=== PATIENT | female | born 1985 | race African-American/Black ===

== ENCOUNTER 2023-12-09 11:29 | Emergency (ER) | payer SELFPAY ==
[~2023-12-09] VITALS: Ht 177.8 cm; Wt 80.0 kg
[2023-12-09 11:36] VITALS: O2SAT 99
[2023-12-09 12:13] LABS: BASOPHILS % 0.9 % (0.0-2.0); EOSINOPHILS % 1.7 % (0.0-5.0); HEMATOCRIT. 33.8 % (36.0-48.0); HEMOGLOBIN. 10.8 g/dL (12.0-16.0); LYMPHOCYTES % 27.7 % (20.0-50.0); MEAN CORPUSCULAR HEMOGLOBIN 28.3 pg (28.0-32.0); MEAN CORPUSCULAR VOLUME 88.3 fL (81.0-99.0); MONOCYTES % 8.8 % (2.0-8.0); NEUTROPHILS % 60.9 % (40.0-76.0); PLATELET 318 x1000/uL (130-400); RED BLOOD CELL COUNT 3.83 mill/uL (4.2-5.4); RED CELL DISTRIBUTION WIDTH 13.5 % (11.6-14.6); WHITE BLOOD COUNT 6.6 x1000/uL (4.5-11.0)
[2023-12-09 12:20] LABS: CHLORIDE 104 mEq/L (98-107); POTASSIUM 3.5 mEq/L (3.5-5.1); SODIUM 135 mEq/L (136-145)
[2023-12-09 12:21] LABS: CARBON DIOXIDE 26 mEq/L (21-32)
[2023-12-09 12:22] LABS: CALCIUM 9.6 mg/dL (8.7-10.4)
[2023-12-09 12:26] LABS: CREATININE 0.6 mg/dL (0.6-1.0); GLUCOSE 90 mg/dL (70-105)
[2023-12-09 12:27] LABS: UREA NITROGEN BLOOD 6 mg/dL (9-23)
[2023-12-09 12:36] LABS: HCG SCREEN POSITIVE
[2023-12-09 12:39] LABS: TROPONIN I HIGH SENSITIVITY < 4 ng/L (3.0-34)
[2023-12-09 16:00] VITALS: BP 107/62; PULSE 84; RESP 18; TEMP 37.05852; O2SAT 100
== END 2023-12-09 16:02 | disposition home or self-care (01) ==
LOC: ER 11:29
DX: R07.89 Other chest pain (principal)
CPT/HCPCS: 36415; 71045; 80048; 84484; 84702; 84703; 85025; 93005; 99285

== ENCOUNTER 2023-12-19 10:47 | Emergency (ER) | payer SELFPAY ==
[~2023-12-19] VITALS: Ht 170.2 cm; Wt 75.0 kg
[2023-12-19 10:49] VITALS: BP 120/66; PULSE 91; RESP 18; TEMP 98.3; O2SAT 97
[2023-12-19 13:29] LABS: BASOPHILS % 0.7 % (0.0-2.0); EOSINOPHILS % 1.2 % (0.0-5.0); HEMATOCRIT. 33.6 % (36.0-48.0); HEMOGLOBIN. 11.1 g/dL (12.0-16.0); LYMPHOCYTES % 22.1 % (20.0-50.0); MEAN CORPUSCULAR HGB CONC 33.1 g/dL (31.0-37.0); MEAN CORPUSCULAR VOLUME 87.7 fL (81.0-99.0); MEAN PLATELET VOLUME 7.2 fl (7.4-10.4); MONOCYTES % 13.9 % (2.0-8.0); NEUTROPHILS % 62.1 % (40.0-76.0); PLATELET 313 x1000/uL (130-400); RED BLOOD CELL COUNT 3.83 mill/uL (4.2-5.4); RED CELL DISTRIBUTION WIDTH 13.2 % (11.6-14.6); WHITE BLOOD COUNT 7.5 x1000/uL (4.5-11.0)
[2023-12-19 13:35] LABS: CHLORIDE 103 mEq/L (98-107); POTASSIUM 4.1 mEq/L (3.5-5.1); SODIUM 135 mEq/L (136-145)
[2023-12-19 13:36] LABS: CARBON DIOXIDE 26 mEq/L (21-32)
[2023-12-19 13:37] LABS: CALCIUM 9.6 mg/dL (8.7-10.4)
[2023-12-19 13:41] LABS: CREATININE 0.5 mg/dL (0.6-1.0); GLUCOSE 75 mg/dL (70-105)
[2023-12-19 13:42] LABS: UREA NITROGEN BLOOD 5 mg/dL (9-23)
[2023-12-19 13:43] LABS: ALANINE AMINOTRANSFERASE 7 IU/L (10-49); ALBUMIN 4.6 g/dL (3.2-4.8); ASPARTATE AMINOTRANSFERASE 15 IU/L (<34)
[2023-12-19 13:44] LABS: BILIRUBIN TOTAL 0.4 mg/dL (0.1-1.0); HCG SCREEN POSITIVE; PROTEIN TOTAL 7.7 g/dL (6.0-8.3)
[2023-12-19 13:47] LABS: TROPONIN I HIGH SENSITIVITY < 4 ng/L (3.0-34)
== END 2023-12-19 16:56 | disposition home or self-care (01) ==
LOC: ER 10:55
DX: O26.891 Other specified pregnancy related conditions, first trimester (principal); R07.89 Other chest pain; Z3A.13 13 weeks gestation of pregnancy
CPT/HCPCS: 36415; 71045; 76801; 80053; 83880; 84484; 84702; 84703; 85025; 87070; 87430; 93005; 99285